=== PATIENT | male | born 1960 | race Hispanic/Latino ===

== ENCOUNTER → 2017-11-27 | Outpatient (CLI) | payer OTHER ==
[~2017-11-27] MED LIST: IOPAMIDOL 370 MG/ML 200 ML INFUS..BTL INJ ONE; SODIUM CHLORIDE 0.9% 100 ML ONE
[2017-11-27 13:20] LABS: BLOOD UREA NITROGEN 19 mg/dL (7-26); BUN/CREATININE RATIO 20 (6-25); CREATININE, SERUM 0.96 mg/dL (0.72-1.25); EST GLOMERULAR FILTRATION RATE > 60 ML/MIN (60-)
--- NOTE | 2017-11-27 14:19 | Diagnostic Imaging Report ---
PROCEDURE:CT ANGIO CHEST abdomen and pelvis W/ WO COMPARISON:None. INDICATIONS:ANEURYSM TECHNIQUE: Multi-detector CT technology with Dose Reduction was employed. Images were obtained after the administration of 100 cc Isovue 350 intravenously. For optimization of anatomic evaluation, multiplanar and volume rendering reconstructions were performed. Advanced 3-D off-line postprocessing were performed on a dedicated stand-alone workstation under the direct supervision of the interpreting physician. DLP: 913.25 mGy-cm FINDINGS: Thoracic aorta: Diameter measurements as follows: 3.5 cm at the sinuses of Valsalva 3.5 cm at the proximal descending thoracic aorta 4.0 cm at the mid ascending thoracic aorta 3.8 cm at the distal ascending thoracic aorta 2.8 cm at the proximal descending thoracic aorta 2.8 cm at the mid descending thoracic aorta 2.7 cm at the distal descending thoracic aorta No intimal flap or mediastinal hematoma. Thoracic viscera: Lungs are clear without consolidation, bronchiectasis, or fibrotic change. Trachea, mainstem bronchi, and central lobar and segmental bronchi are patent. Visualized portions of the thyroid gland are normal. No axillary, hilar, or mediastinal lymphadenopathy. Pulmonary outflow tract is of normal caliber. Central pulmonary arteries are patent, without filling defects. No pericardial effusion. Normal heart size. No osseous destructive lesions. Aortic Measurements at the level of the: Diaphragmatic hiatus: 2.7 cm Celiac axis: 2.6 cm Superior Mesenteric Artery: 2.2 cm Renal Arteries: 2.2 cm Above the iliac bifurcation: 1.6 cm There is a small amount of calcified plaque throughout the abdominal aorta. No dissection. The celiac, superior mesenteric, inferior mesenteric, and renal arteries are patent with no significant atherosclerotic disease, without significant narrowing. Pelvic vessels: Right common iliac artery: Patent, non-aneurysmal Left common iliac artery: Patent, nonaneurysmal The bilateral common, external and internal iliac arteries are patent with minimal calcified atherosclertotic disease. No significant areas of narrowing. Abdominal and Pelvic soft-tissues and organs: Lung bases: As above Liver: 1 cm hyperattenuating lesion in segment 8. Similar subcentimeter lesion in segment 5 along the gallbladder fossa. No additional focal hepatic lesion or intrahepatic biliary ductal dilatation. The gallbladder is absent. Biliary: No biliary dilatation. Spleen: No splenomegaly or focal splenic lesion. Heterogeneous attenuation reflects arterial phase of scanning. Pancreas: No focal mass or ductal dilatation. Adrenal Glands: No nodules. Kidneys: No hydronephrosis, calculi, or gross mass lesion GI: Multiple sigmoid diverticula without wall thickening or inflammatory change. Normal appendix. No small bowel dilatation to suggest obstruction. Peritoneum/Retroperitoneum: No ascites. No pneumoperitoneum. Reproductive organs: Urinary bladder, prostate, and seminal vesicles are unremarkable. Musculoskeletal: No focal soft tissue abnormalities. No osseous destructive lesions. L5 laminectomy defect. Lymph nodes: No pelvic sidewall, retroperitoneal, or mesenteric lymphadenopathy. CONCLUSION: Mildly ectatic ascending thoracic aorta (4.0 cm). No acute aortic pathology. Mild atherosclerotic disease. 1 cm hyperattenuating lesion in the right hepatic lobe likely reflects a vascular shunt or flash filling hemangioma. Definitive characterization with CT or MRI of the abdomen with and without contrast (liver mass protocol) is suggested. Large bowel diverticulosis without evidence of diverticulitis. Dictated by: Dao Narayan M.D. on 11/27/2017 at 14:21 Electronically approved by: Dao Narayan M.D. on 11/27/2017 at 14:21
--- NOTE | 2017-11-27 14:20 | Diagnostic Imaging Report ---
PROCEDURE:CTA ABD/PELVIS WOW COMPARISON:None. INDICATIONS:ANEURYSM FINDINGS: See conclusion CONCLUSION: Please refer to the examination titled "CTA CHEST" from 11/27/2017 for full dictated report. Dictated by: Dao Narayan M.D. on 11/27/2017 at 14:22 Electronically approved by: Dao Narayan M.D. on 11/27/2017 at 14:22
== END ==
LOC: CT 12:31
PROVIDERS: ATTEND Internal Medicine Cardiovascular Disease
DX: I77.810 Thoracic aortic ectasia (principal); K57.30 Diverticulosis of large intestine without perforation or abscess without bleeding
CPT/HCPCS: 36415; 71275; 74174; 82565; 84520; J7050; Q9967